=== PATIENT | male | born 1965 | race Caucasian/White ===

== ENCOUNTER 2017-09-11 10:43 | Emergency (ER) | payer BC ==
[2017-09-11 11:27] LABS: PTT 25.8 SEC (22.9-36.1); Prothrombin Time 13.3 SEC (12.0-14.7)
[2017-09-11 11:33] LABS: ALT (SGPT) 23 U/L (8-55); AST (SGOT) 25 U/L (5-34); Alkaline Phosphatase 46 U/L (40-150); Anion Gap 14 mmol/L (10-20); BUN (Urea Nitrogen) 17 mg/dL (8.9-20.6); Bilirubin, Total 0.4 mg/dL (0.2-1.2); Calc. Creatinine Clearance 0 mL/min (70-130); Calcium 9.4 mg/dL (7.8-10.44); Carbon Dioxide 25 mmol/L (22-29); Chloride 107 mmol/L (98-107); Estimated GFR-MDRD Greater than 90; Globulin 2.9 g/dL (2.4-3.5); Protein, Total 7.1 g/dL (6.0-8.3)
[2017-09-11 11:35] LABS: Troponin I Less than 0.010 ng/mL (< 0.028)
[2017-09-11 11:41] LABS: Hematocrit 48.8 % (42.0-52.0); Mean Platelet Volume 6.4 fL (7.4-10.4); Neutrophil 64 % (42-75); Reactive Lymphocytes 11 % (0-10); Red Blood Cell (RBC) Count 5.32 mill/uL (4.70-6.10); White Blood Cell (WBC) Count 8.8 thou/uL (4.8-10.8)
--- NOTE | 2017-09-11 14:01 | ULT ---
LEFT LOWER EXTREMITY VENOUS DOPPLER ULTRASOUND: Date: 09/11/17 COMPARISON: None. HISTORY: Left leg pain, left calf tenderness and twitching, evaluate for deep venous thrombosis. TECHNIQUE: Multiplanar Cho scale sonographic imaging of the venous structures of the left lower extremity obta ined with color flow and spectral analysis. FINDINGS: The left common femoral vein, greater saphenous vein, profunda femoral vein, femoral vein, popliteal vein, and posterior tibial vein are patent. There is normal blood flow, augmentation, and compressi on within the deep venous system of the left lower extremity. No evidence for deep venous thrombosis . IMPRESSION: No evidence for deep venous thrombosis of the left lower extremity. POS: [facility]
== END 2017-09-11 12:54 | disposition home or self-care (01) ==
LOC: SCSER 10:43
DX: M62.831 Muscle spasm of calf (principal); Z86.711 Personal history of pulmonary embolism; Z79.82 Long term (current) use of aspirin
CPT/HCPCS: 80053; 82553; 84484; 85025; 85610; 85730; 93005